=== PATIENT | female | born 1940 | race Caucasian/White ===

== ENCOUNTER → 2023-08-29 12:28 | Outpatient (REF) | payer OTHER, SELFPAY ==
[2023-08-29 13:51] LABS: % Basophils 0.7 % (0-2); % Eosinophils 2.4 % (0-6); % Immature Granulocytes 0.6 % (0-0.5); % Lymphocytes 17.3 % (20.5-51.1); % Monocytes 7.6 % (1.7-9.3); % Neutrophils 71.4 % (42.2-75.2); Absolute Basophils 0.1 10^3/uL (0-0.2); Absolute Eosinophils 0.2 10^3/uL (0-0.7); Absolute Immature Granulocytes 0.1 10^3/uL (0-0.05); Absolute Lymphocytes 1.4 10^3/uL (1.2-3.4); Absolute Monocytes 0.6 10^3/uL (0.1-0.6); Absolute Neutrophils 5.7 10^3/uL (1.4-6.5); Hematocrit 32.9 % (37.0-47.0); Mean Corp Hgb Conc. 33.4 g/dL (33.0-37.0); Mean Corpuscular Hgb 30.9 pg (27.0-31.0); Mean Corpuscular Volume 92.4 fL (81.0-99.0); Mean Platelet Volume 8.7 fL (7.4-10.4); Nucleated Red Blood Cells % 0 %; Platelet Count 487 10^3/uL (130-400); Red Blood Cell Count 3.56 10^6/uL (4.20-5.40); Red Cell Dist. Width 12.2 % (11.5-14.5)
[2023-08-29 14:55] LABS: ALT (SGPT) 20 U/L (0-35); AST (SGOT) 32 U/L (14-36); Albumin 4.6 g/dl (3.5-5.0); Alkaline Phosphatase 78 U/L (38-126); Blood Urea Nitrogen 23 mg/dl (7-17); Calcium 10.3 mg/dl (8.4-10.2); Carbon Dioxide 31 mmol/L (22-30); Chloride 97 mmol/L (98-107); Glucose 81 mg/dl (70-99); Potassium 4.4 mmol/L (3.5-5.1); Sodium 136 mmol/L (135-145); Total Bilirubin 0.4 mg/dl (0.2-1.3); Total Protein 7.1 g/dl (6.3-8.2); eGFR > 60.00
== END ==
LOC: REG 12:28
PROVIDERS: ATTENDING PHYSICIAN Internal Medicine Rheumatology; FAMILY PHYSICIAN Internal Medicine
DX: M17.0 Bilateral primary osteoarthritis of knee (principal); M81.0 Age-related osteoporosis without current pathological fracture; Z51.81 Encounter for therapeutic drug level monitoring; R26.89 Other abnormalities of gait and mobility
CPT/HCPCS: 36415; 80053; 85025

== ENCOUNTER → 2023-09-30 14:45 | Outpatient (REF) | payer OTHER, SELFPAY | LOC: PAVMRI 14:45 | PROVIDERS: ATTENDING PHYSICIAN Internal Medicine Rheumatology; FAMILY PHYSICIAN Internal Medicine | DX: M17.11 Unilateral primary osteoarthritis, right knee (principal); M25.561 Pain in right knee | CPT/HCPCS: 73721 ==

== ENCOUNTER → 2023-10-03 10:26 | Outpatient (REF) | payer OTHER, SELFPAY ==
[2023-10-03 11:32] LABS: % Basophils 1.3 % (0-2); % Eosinophils 3.3 % (0-6); % Immature Granulocytes 0.6 % (0-0.5); % Lymphocytes 18.9 % (20.5-51.1); % Monocytes 8.8 % (1.7-9.3); % Neutrophils 67.1 % (42.2-75.2); Absolute Basophils 0.1 10^3/uL (0-0.2); Absolute Eosinophils 0.2 10^3/uL (0-0.7); Absolute Lymphocytes 1.3 10^3/uL (1.2-3.4); Absolute Monocytes 0.6 10^3/uL (0.1-0.6); Absolute Neutrophils 4.7 10^3/uL (1.4-6.5); Hematocrit 35.5 % (37.0-47.0); Mean Corp Hgb Conc. 33.8 g/dL (33.0-37.0); Mean Corpuscular Hgb 31.3 pg (27.0-31.0); Mean Corpuscular Volume 92.7 fL (81.0-99.0); Mean Platelet Volume 8.6 fL (7.4-10.4); Nucleated Red Blood Cells % 0 %; Platelet Count 464 10^3/uL (130-400); Red Blood Cell Count 3.83 10^6/uL (4.20-5.40)
[2023-10-03 13:00] LABS: ALT (SGPT) 19 U/L (0-35); AST (SGOT) 30 U/L (14-36); Albumin 4.6 g/dl (3.5-5.0); Alkaline Phosphatase 83 U/L (38-126); Blood Urea Nitrogen 24 mg/dl (7-17); Calcium 9.7 mg/dl (8.4-10.2); Carbon Dioxide 32 mmol/L (22-30); Chloride 98 mmol/L (98-107); Glucose 92 mg/dl (70-99); Potassium 4.4 mmol/L (3.5-5.1); Sodium 137 mmol/L (135-145); Total Bilirubin 0.5 mg/dl (0.2-1.3); Total Protein 7.2 g/dl (6.3-8.2); eGFR > 60.00
== END ==
LOC: REG 10:26
PROVIDERS: ATTENDING PHYSICIAN Internal Medicine Rheumatology; FAMILY PHYSICIAN Internal Medicine
DX: M17.0 Bilateral primary osteoarthritis of knee (principal); M25.561 Pain in right knee; M81.0 Age-related osteoporosis without current pathological fracture; R26.89 Other abnormalities of gait and mobility; Z51.81 Encounter for therapeutic drug level monitoring
CPT/HCPCS: 36415; 80053; 85025

== ENCOUNTER → 2023-11-07 12:07 | Outpatient (REF) | payer OTHER, SELFPAY ==
[2023-11-07 13:40] LABS: % Basophils 0.7 % (0-2); % Eosinophils 1.5 % (0-6); % Immature Granulocytes 0.4 % (0-0.5); % Lymphocytes 18.8 % (20.5-51.1); % Monocytes 7.9 % (1.7-9.3); % Neutrophils 70.7 % (42.2-75.2); Absolute Basophils 0.1 10^3/uL (0-0.2); Absolute Eosinophils 0.1 10^3/uL (0-0.7); Absolute Lymphocytes 1.6 10^3/uL (1.2-3.4); Absolute Monocytes 0.7 10^3/uL (0.1-0.6); Absolute Neutrophils 5.8 10^3/uL (1.4-6.5); Hematocrit 33.2 % (37.0-47.0); Hemoglobin 11.1 g/dL (12.0-16.0); Mean Corp Hgb Conc. 33.4 g/dL (33.0-37.0); Mean Corpuscular Hgb 30.6 pg (27.0-31.0); Mean Corpuscular Volume 91.5 fL (81.0-99.0); Mean Platelet Volume 8.6 fL (7.4-10.4); Nucleated Red Blood Cells % 0 %; Platelet Count 377 10^3/uL (130-400); Red Blood Cell Count 3.63 10^6/uL (4.20-5.40); Red Cell Dist. Width 12.1 % (11.5-14.5); White Blood Cell Count 8.2 10^3/uL (4.8-10.8)
[2023-11-07 13:45] LABS: Erythrocyte Sed Rate 16 mm/hour (0-20)
[2023-11-07 13:51] LABS: ALT (SGPT) 17 U/L (0-35); AST (SGOT) 28 U/L (14-36); Albumin 4.2 g/dl (3.5-5.0); Alkaline Phosphatase 78 U/L (38-126); Blood Urea Nitrogen 23 mg/dl (7-17); Calcium 9.9 mg/dl (8.4-10.2); Carbon Dioxide 32 mmol/L (22-30); Chloride 97 mmol/L (98-107); Glucose 88 mg/dl (70-99); Potassium 4.1 mmol/L (3.5-5.1); Sodium 135 mmol/L (135-145); Total Bilirubin 0.4 mg/dl (0.2-1.3); Total Protein 6.8 g/dl (6.3-8.2); eGFR > 60.00
[2023-11-07 13:57] LABS: C-Reactive Protein < 5.00 mg/L (0.0-10.00)
[2023-11-09 15:02] LABS: CCP Antibody IgG/IgA 9 Units (0-19)
[2023-11-09 18:13] LABS: HLA-B27 Negative (Negative)
== END ==
LOC: REG 12:07
PROVIDERS: ATTENDING PHYSICIAN Physician Assistant; FAMILY PHYSICIAN Internal Medicine; REFERRING PHYSICIAN Orthopaedic Surgery
DX: M17.0 Bilateral primary osteoarthritis of knee (principal); M17.11 Unilateral primary osteoarthritis, right knee; M65.9 Synovitis and tenosynovitis, unspecified; M81.0 Age-related osteoporosis without current pathological fracture; R26.89 Other abnormalities of gait and mobility; Z51.81 Encounter for therapeutic drug level monitoring
CPT/HCPCS: 36415; 80053; 85025; 85652; 86140; 86200; 86430; 86812

== ENCOUNTER 2023-12-21 07:11 | Inpatient (IN) | payer OTHER, SELFPAY ==
--- NOTE | 2023-11-15 11:25 | CM ---
Addendum entered by Majo Lamb 12/20/23 09:04:
Spoke again with patient. She states that she has a rolling walker and that her brother and sister in law will be staying with her after her surgery. Reviewed VN services with her as well as transition to outpatient PT.
Original Note:
Patient is scheduled for an elective R TKR on 12/21/23. Spoke with patient prior to surgery via telephone. Introduced role of Orthopedic Navigator. Patient reports that she lives alone in a multi story home. There are no steps to enter and she has a
first floor set up. There are eight steps down to the family room. She currently functions independently. She uses a cane occasionally. She states that she may have a walker. She has never had VN services. PCP is Dr. Franklin De La Torre.
Discussed orthopedic program and post surgical plans. Reviewed anticipated length of stay and that goal is for her to return home at discharge. Also reviewed outpatient PT. Patient is in agreement with tentative plan but will need VN services.
Options and PAC data reviewed; patent selects [facility]. She states that her brother may come stay with her after surgery.
Patient will complete online education.
Plan: Orthopedic Navigator will remain available to assist with the care of patient and will reassess discharge needs after surgery.
[2023-12-01 09:19] VITALS: BMI 23.0
[2023-12-01 10:46] LABS: Hematocrit 34.2 % (37.0-47.0); Hemoglobin 11.7 g/dL (12.0-16.0); Mean Corp Hgb Conc. 34.2 g/dL (33.0-37.0); Mean Corpuscular Hgb 30.9 pg (27.0-31.0); Mean Corpuscular Volume 90.2 fL (81.0-99.0); Mean Platelet Volume 8.7 fL (7.4-10.4); Platelet Count 434 10^3/uL (130-400); Red Blood Cell Count 3.79 10^6/uL (4.20-5.40); Red Cell Dist. Width 12.3 % (11.5-14.5); White Blood Cell Count 7.8 10^3/uL (4.8-10.8)
[2023-12-01 11:12] LABS: ALT (SGPT) 17 U/L (0-35); AST (SGOT) 29 U/L (14-36); Albumin 4.5 g/dl (3.5-5.0); Alkaline Phosphatase 68 U/L (38-126); Blood Urea Nitrogen 22 mg/dl (7-17); Calcium 10.1 mg/dl (8.4-10.2); Carbon Dioxide 33 mmol/L (22-30); Chloride 97 mmol/L (98-107); Estimated Creatinine Clearance 49 ml/min; Glucose 78 mg/dl (70-99); Potassium 4.2 mmol/L (3.5-5.1); Sodium 138 mmol/L (135-145); Total Bilirubin 0.5 mg/dl (0.2-1.3); Total Protein 6.8 g/dl (6.3-8.2); eGFR > 60.00
[2023-12-01 13:45] LABS: Glycohemoglobin (HgbA1c) 5.6 % (4.0-5.6)
[2023-12-16 14:50] VITALS: BMI 23.0
[2023-12-21] VITALS (10 sets, daily range): BP systolic 105–156; BP diastolic 49–78; PULSE 82; O2SAT 92; BMI 23.0
[2023-12-21] MEDS: NORMOSOL-R 1000 IV ×2 (07:34→09:47)
[2023-12-21] MEDS: TYLENOL 650 MG PO ×4 (07:34→20:33)
[2023-12-21] MEDS: CELEBREX 200 MG PO (07:34)
--- NOTE | 2023-12-21 09:09 | W.DS.TRANS ---
DC Summary - Night Clerk Auditor
-
Discharge Instructions:
Sleep Apnea Risk Low
Discharge Diagnosis/Procedures R TKA Dr. Melvin 12/21/23
Diet As tolerated
Activity With Walker
Driving Restrictions No driving
Other Services PT,VN
Instructions:
Stand-Alone Forms:
Changes to Home Medications: Yes
Discharge Medications:
DC Medications w/original date entered in [facility] [facility]
Atenolol 50 tab PO DAILY 12/01/13
Calcium 600 tab PO DAILY 12/01/13
Hydrochlorothiazide 25 tab PO DAILY 12/01/13
Multivitamin 1 tab PO DAILY 12/01/13
Oxybutinin 10 tab PO DAILY 12/01/13
Sertraline 50 tab PO DAILY 12/01/13
Vitamin B Complex 1 tab PO DAILY 12/01/13
Vitamin D 1,000 units PO DAILY 12/01/13
Prevagen 1 dose PO DAILY 12/14/23
mupirocin 2 % topical ointment 1 applic topical BID 12/14/23
acetaminophen 325 mg capsule (Tylenol) 650 mg (2 x 325 mg) PO QID #2 caps 12/21/23
aspirin 325 mg tablet 325 mg PO DAILY blood clot prevention #1 tab 12/21/23
celecoxib 200 mg capsule 200 mg PO DAILY anti-inflammatory #14 caps 12/21/23
dexamethasone 4 mg tablet 4 mg PO BID inflammation #6 tabs 12/21/23
docusate sodium 100 mg capsule (Colace) 100 mg PO BID stool softner #1 cap 12/21/23
magnesium hydroxide 400 mg/5 mL oral suspension (Milk of Magnesia) 30 ml PO HS PRN Constipation #1 mL 12/21/23
ondansetron 4 mg disintegrating tablet 4 mg PO Q6H PRN n/v #20 tabs 12/21/23
oxycodone 5 mg tablet 5 mg PO Q6H PRN 1 tab moderate pain, 2 tabs severe pain #30 tabs 12/21/23
sennosides 8.6 mg tablet (Senokot) 17.2 mg (2 x 8.6 mg) PO BID laxative #2 tabs 12/21/23
Home Medication Changes
celecoxib 200 mg capsule 200 mg PO DAILY anti-inflammatory #14 caps 12/21/23
dexamethasone 4 mg tablet 4 mg PO BID inflammation #6 tabs 12/21/23
ondansetron 4 mg disintegrating tablet 4 mg PO Q6H PRN n/v #20 tabs 12/21/23
oxycodone 5 mg tablet 5 mg PO Q6H PRN 1 tab moderate pain, 2 tabs severe pain #30 tabs 12/21/23
Pending Results: No
[2023-12-21] MEDS: ROXICODONE 5 MG PO (10:16)
--- NOTE | 2023-12-21 11:02 | PTCARENOTE ---
Patient received from PACU in bed; IVF infusing; Patient on 2L NC; Patient states pain is mild and tolerable; Patient denies nausea/vomiting at this time; Patient awake and alert to self, place, and time; Surgical site assessed with MARKET RESEARCH WORKER, right
knee aquacell clean, dry, and intact; Patient has positive sensation to bilateral lower extremities; Bilateral pedal pulse +2 to palpation; Capillary refill to bilateral toes <3 seconds; Patient can wiggle toes but unable to lift leg off bed at this
time; Call solorzano within reach; Bed in lowest position, wheels locked; Patient oriented to room and unit; Assessment ongoing
[2023-12-21] MEDS: ASPIRIN 325 MG PO (17:00)
[2023-12-21] MEDS: ANCEF 5 IV (17:00)
[2023-12-21] MEDS: ZOFRAN 4 MG IV (17:37)
[2023-12-21] MEDS: BACTROBAN 2% OINTMENT 1 APPLIC NASAL (20:32)
[2023-12-21] MEDS: SENOKOT PO (20:32)
[2023-12-21] MEDS: TORADOL 15 MG IV (20:33)
[2023-12-21] MEDS: COLACE PO (20:33)
[2023-12-21] MEDS: DECADRON 4 MG PO (20:33)
[2023-12-21] MEDS: NEURONTIN 300 MG PO (21:53)
[2023-12-21] MEDS: PROTONIX 40 MG PO (21:53)
[2023-12-22] MEDS: TYLENOL PO (00:42)
[2023-12-22] MEDS: ANCEF 5 IV (02:00)
[2023-12-22] MEDS: TYLENOL 650 MG PO ×2 (03:10→07:51)
[2023-12-22 07:20] VITALS: BP 130/54
[2023-12-22] MEDS: CELEBREX 200 MG PO (07:51)
[2023-12-22] MEDS: TENORMIN 50 MG PO (07:51)
[2023-12-22] MEDS: SENOKOT 17.2 MG PO (07:51)
[2023-12-22] MEDS: DECADRON 4 MG PO (07:52)
[2023-12-22] MEDS: BACTROBAN 2% OINTMENT 1 APPLIC NASAL (07:52)
[2023-12-22] MEDS: TORADOL 15 MG IV (07:52)
[2023-12-22] MEDS: COLACE 100 MG PO (07:52)
[2023-12-22] MEDS: ZOLOFT 50 MG PO (07:52)
[2023-12-22] MEDS: ASPIRIN 325 MG PO (07:52)
--- NOTE | 2023-12-22 07:59 | CM ---
Reviewed chart and held rounds with PT, OT and nursing. Patient admitted as planned for elective R TKR. Met with patient at bedside. Confirmed information previously obtained for assessment. Also discussed discharge plans. The plan is for patient to
return home at discharge. Her brother and sister in law will be staying with her for a week. Reviewed VN services including start of care (tentatively 12/22), services to be ordered (PT, SN) and frequency/duration of services. Options list provided
and PAC data reviewed. Patient selects VN.
Patient has a rolling walker, raised toilet seat with rails and a cane at home.
VN referral was completed and sent to [facility] through [employer] with request for start of care on 12/22. Confirmation received of their ability to accept case. candy counter clerk to fax discharge instructions to [facility] when complete.
--- NOTE | 2023-12-22 10:15 | W.PN.ORTHO ---
Today's Communication / Plan
-
d/c
Assessment
.
Dressing:
Clean, dry and intact.
Plan
.
Surgery / Date: Jeremy Melvin 12/21/23
DVT Prophylaxis: Aspirin
Activity:
Out of bed.
PT/OT
Discharge Plan: Home w/ VN
Subjective
.
.:
Patient resting comfortably.
Vital Signs and Labs
.
Vital Signs and Labs:
Lab Results
12/01/23 09:10
12/01/23 09:10
Temp Pulse Resp BP Pulse Ox
97.5 F 86 18 149/67 97
12/22/23 07:20 12/22/23 07:51 12/22/23 07:20 12/22/23 07:51 12/22/23 07:20
Physical Exam
-
HEENT: No pallor, cyanosis, or jaundice. Throat clear.
NECK: Supple. No JVD.
RESPIRATORY: Lungs clear to auscultation.
CVS: S1, S2 normal. RRR.� No murmur, rub or gallop.
ABDOMEN: Soft, non-tender. No distension. BS+/normal.
EXTREMITIES: strength equal, no calf pain with palpation
GAMBLING COUNSELLOR: AOx3. No focal deficits. interlibrary loan services librarian grossly intact
[2023-12-22 10:35] VITALS: BP 111/54
[2023-12-22 10:40] VITALS: BP 117/48; PULSE 53; O2SAT 96
== END 2023-12-22 12:47 | disposition home health service (06) | DRG 470 ==
LOC: 2 SOUTH 07:11
PROVIDERS: ADMITTING PHYSICIAN Orthopaedic Surgery; FAMILY PHYSICIAN Internal Medicine
PROC: 0SRC069 Replacement of Right Knee Joint with Oxidized Zirconium on Polyethylene Synthetic Substitute, Cemented, Open Approach (ICD-10-PCS; 2023-12-21)
DX: M17.11 Unilateral primary osteoarthritis, right knee (principal)
CPT/HCPCS: 36415; 73560; 80053; 83036; 85027; 86850; 86900; 86901; 87070; 93005; 97110; 97116; 97163; 97166; 97530; 97535; C1713; C1776

== ENCOUNTER → 2024-06-04 09:23 | Outpatient (REF) | payer OTHER, SELFPAY ==
[2024-06-04 11:06] LABS: % Basophils 1.1 % (0-2); % Eosinophils 4.3 % (0-6); % Immature Granulocytes 0.4 % (0-0.5); % Lymphocytes 20.1 % (20.5-51.1); % Monocytes 8.3 % (1.7-9.3); % Neutrophils 65.8 % (42.2-75.2); Absolute Basophils 0.1 10^3/uL (0-0.2); Absolute Eosinophils 0.2 10^3/uL (0-0.7); Absolute Lymphocytes 1.1 10^3/uL (1.2-3.4); Absolute Monocytes 0.5 10^3/uL (0.1-0.6); Absolute Neutrophils 3.6 10^3/uL (1.4-6.5); Hematocrit 36.2 % (37.0-47.0); Mean Corp Hgb Conc. 33.1 g/dL (33.0-37.0); Mean Corpuscular Hgb 30.5 pg (27.0-31.0); Mean Corpuscular Volume 92.1 fL (81.0-99.0); Mean Platelet Volume 8.7 fL (7.4-10.4); Nucleated Red Blood Cells % 0 %; Platelet Count 372 10^3/uL (130-400); Red Blood Cell Count 3.93 10^6/uL (4.20-5.40); Red Cell Dist. Width 12.6 % (11.5-14.5); White Blood Cell Count 5.5 10^3/uL (4.8-10.8)
[2024-06-04 11:39] LABS: ALT (SGPT) 18 U/L (0-35); AST (SGOT) 28 U/L (14-36); Albumin 4.6 g/dl (3.5-5.0); Alkaline Phosphatase 78 U/L (38-126); Blood Urea Nitrogen 30 mg/dl (7-17); Calcium 9.7 mg/dl (8.4-10.2); Carbon Dioxide 32 mmol/L (22-30); Chloride 96 mmol/L (98-107); Glucose 91 mg/dl (70-99); Potassium 4.2 mmol/L (3.5-5.1); Sodium 137 mmol/L (135-145); Total Bilirubin 0.4 mg/dl (0.2-1.3); Total Protein 7.2 g/dl (6.3-8.2); eGFR > 60.00
== END ==
LOC: REG 09:23
PROVIDERS: ATTENDING PHYSICIAN Internal Medicine Rheumatology; FAMILY PHYSICIAN Internal Medicine
DX: M17.11 Unilateral primary osteoarthritis, right knee (principal); M25.561 Pain in right knee; M81.0 Age-related osteoporosis without current pathological fracture; R26.89 Other abnormalities of gait and mobility; Z51.81 Encounter for therapeutic drug level monitoring
CPT/HCPCS: 36415; 80053; 85025

== ENCOUNTER → 2024-07-30 09:16 | Outpatient (REF) | payer OTHER, SELFPAY ==
[2024-07-30 10:44] LABS: % Basophils 0.7 % (0-2); % Eosinophils 3.3 % (0-6); % Immature Granulocytes 0.3 % (0-0.5); % Lymphocytes 14.9 % (20.5-51.1); % Monocytes 8.7 % (1.7-9.3); % Neutrophils 72.1 % (42.2-75.2); Absolute Basophils 0.1 10^3/uL (0-0.2); Absolute Eosinophils 0.3 10^3/uL (0-0.7); Absolute Lymphocytes 1.4 10^3/uL (1.2-3.4); Absolute Monocytes 0.8 10^3/uL (0.1-0.6); Absolute Neutrophils 6.8 10^3/uL (1.4-6.5); Hematocrit 33.4 % (37.0-47.0); Hemoglobin 11.1 g/dL (12.0-16.0); Mean Corp Hgb Conc. 33.2 g/dL (33.0-37.0); Mean Corpuscular Hgb 30.8 pg (27.0-31.0); Mean Corpuscular Volume 92.8 fL (81.0-99.0); Mean Platelet Volume 8.7 fL (7.4-10.4); Nucleated Red Blood Cells % 0 %; Platelet Count 388 10^3/uL (130-400); White Blood Cell Count 9.5 10^3/uL (4.8-10.8)
[2024-07-30 11:19] LABS: ALT (SGPT) 18 U/L (0-35); AST (SGOT) 27 U/L (14-36); Albumin 4.5 g/dl (3.5-5.0); Alkaline Phosphatase 78 U/L (38-126); Blood Urea Nitrogen 23 mg/dl (7-17); Calcium 10.4 mg/dl (8.4-10.2); Carbon Dioxide 35 mmol/L (22-30); Chloride 95 mmol/L (98-107); Glucose 93 mg/dl (70-99); Potassium 4.7 mmol/L (3.5-5.1); Sodium 137 mmol/L (135-145); Total Bilirubin 0.6 mg/dl (0.2-1.3); Total Protein 6.8 g/dl (6.3-8.2); eGFR > 60.00
== END ==
LOC: RAD 09:16
PROVIDERS: ATTENDING PHYSICIAN Internal Medicine Rheumatology; FAMILY PHYSICIAN Internal Medicine
DX: M81.0 Age-related osteoporosis without current pathological fracture (principal)
CPT/HCPCS: 36415; 77080; 80053; 85025

== ENCOUNTER → 2024-11-27 10:22 | Outpatient (REF) | payer OTHER, SELFPAY ==
[2024-11-27 11:10] LABS: Urine Character Clear (Clear)
[2024-11-27 11:18] LABS: Hematocrit 34.1 % (37.0-47.0); Hemoglobin 11.6 g/dL (12.0-16.0); Mean Corp Hgb Conc. 34.0 g/dL (33.0-37.0); Mean Corpuscular Volume 92.2 fL (81.0-99.0); Nucleated Red Blood Cells % 0 %; Platelet Count 387 10^3/uL (130-400); Red Cell Dist. Width 12.0 % (11.5-14.5)
[2024-11-27 11:26] LABS: Urine Squamous Cell 0-2 /LPF (Few)
[2024-11-27 11:46] LABS: ALT (SGPT) 17 U/L (0-35); AST (SGOT) 24 U/L (14-36); Albumin 4.7 g/dl (3.5-5.0); Alkaline Phosphatase 65 U/L (38-126); Blood Urea Nitrogen 24 mg/dl (7-17); Calcium 9.6 mg/dl (8.4-10.2); Carbon Dioxide 28 mmol/L (22-30); Chloride 102 mmol/L (98-107); Glucose 96 mg/dl (70-99); HDL Cholesterol 68 mg/dl; LDL Cholesterol, Calculated 73 mg/dl; Potassium 4.0 mmol/L (3.5-5.1); Sodium 138 mmol/L (135-145); Total Protein 7.2 g/dl (6.3-8.2); Very Low Density Lipoprotein 33 mg/dl (0-30); eGFR > 60.00
[2024-11-27 12:01] LABS: Vitamin D, 25-OH*** 60.1 ng/mL (30-80)
[2024-11-27 12:15] LABS: TSH 2.25 uIU/ml (0.47-4.68)
== END ==
LOC: REG 10:22
PROVIDERS: ATTENDING PHYSICIAN Internal Medicine
DX: K58.0 Irritable bowel syndrome with diarrhea (principal); M81.0 Age-related osteoporosis without current pathological fracture; G60.9 Hereditary and idiopathic neuropathy, unspecified; I10 Essential (primary) hypertension; I70.0 Atherosclerosis of aorta; F32.5 Major depressive disorder, single episode, in full remission; K56.2 Volvulus
CPT/HCPCS: 36415; 80053; 80061; 81003; 81015; 82306; 84443; 85025

== ENCOUNTER → 2025-02-01 09:15 | Outpatient (REF) | payer OTHER, SELFPAY ==
[2025-02-01 10:19] LABS: Hematocrit 34.8 % (37.0-47.0); Hemoglobin 11.9 g/dL (12.0-16.0); Mean Corp Hgb Conc. 34.2 g/dL (33.0-37.0); Mean Corpuscular Volume 93.5 fL (81.0-99.0); Nucleated Red Blood Cells % 0 %; Platelet Count 423 10^3/uL (130-400); Red Cell Dist. Width 11.6 % (11.5-14.5); Reticulocyte Count 1.2 % (0.4-2.8)
[2025-02-01 10:53] LABS: Iron 127 ug/dl (37-170)
[2025-02-01 11:02] LABS: Total Iron Binding Capacity 341 ug/dl (265-497)
[2025-02-01 11:29] LABS: Ferritin 38.2 ng/ml (11.1-264.0)
[2025-02-01 16:09] LABS: Urine Character Clear (Clear)
[2025-02-01 16:26] LABS: Urine Red Blood Cell 0-2 /HPF (0-2); Urine White Cell 0-2 /HPF (0-5)
== END ==
LOC: REG 09:15
PROVIDERS: ATTENDING PHYSICIAN Internal Medicine
DX: D64.9 Anemia, unspecified (principal); R31.29 Other microscopic hematuria
CPT/HCPCS: 36415; 81003; 81015; 82728; 83540; 83550; 85025; 85045

== ENCOUNTER → 2025-04-03 11:52 | Outpatient (REF) | payer OTHER, SELFPAY ==
[2025-04-03 12:45] LABS: Urine Character Clear (Clear)
[2025-04-03 12:46] LABS: Hematocrit 36.4 % (37.0-47.0); Hemoglobin 12.3 g/dL (12.0-16.0); Mean Corp Hgb Conc. 33.8 g/dL (33.0-37.0); Mean Corpuscular Volume 95.8 fL (81.0-99.0); Nucleated Red Blood Cells % 0 %; Platelet Count 418 10^3/uL (130-400); Red Cell Dist. Width 11.7 % (11.5-14.5)
[2025-04-03 13:06] LABS: Urine Red Blood Cell 0-2 /HPF (0-2)
[2025-04-03 13:20] LABS: ALT (SGPT) 18 U/L (0-35); AST (SGOT) 26 U/L (14-36); Albumin 4.5 g/dl (3.5-5.0); Alkaline Phosphatase 75 U/L (38-126); Blood Urea Nitrogen 21 mg/dl (7-17); Calcium 9.9 mg/dl (8.4-10.2); Carbon Dioxide 33 mmol/L (22-30); Chloride 97 mmol/L (98-107); Glucose 96 mg/dl (70-99); HDL Cholesterol 74 mg/dl; LDL Cholesterol, Calculated 96 mg/dl; Potassium 4.0 mmol/L (3.5-5.1); Sodium 137 mmol/L (135-145); Total Protein 7.0 g/dl (6.3-8.2); Very Low Density Lipoprotein 15 mg/dl (0-30); eGFR > 60.00
[2025-04-03 13:49] LABS: TSH 1.85 uIU/ml (0.47-4.68)
== END ==
LOC: REG 11:52
PROVIDERS: ATTENDING PHYSICIAN Internal Medicine
DX: I10 Essential (primary) hypertension (principal); K58.0 Irritable bowel syndrome with diarrhea; M81.0 Age-related osteoporosis without current pathological fracture; G60.9 Hereditary and idiopathic neuropathy, unspecified; F32.5 Major depressive disorder, single episode, in full remission; I70.0 Atherosclerosis of aorta; Z23 Encounter for immunization
CPT/HCPCS: 36415; 80053; 80061; 81003; 81015; 84443; 85025